=== PATIENT | female | born 1975 | race American Indian/Alaskan Native ===

== ENCOUNTER 2018-01-21 02:05 | Emergency (ER) | payer OTHER ==
[2018-01-21] MEDS ORDERED: Aspirin 325 mg EC Tablets PO STA (02:43)
[2018-01-21] MEDS ORDERED: Aspirin 325 mg EC Tablets PO ONE (02:50)
[2018-01-21 03:07] LABS: BASO # 0.1 K/uL (0.0-0.2); BASO % 0.9 % (0.0-2.0); EOS % 0.6 % (0.0-4.0); HEMOGLOBIN 11.6 g/dL (11.0-16.0); LYMPH # 1.8 K/uL (1.0-4.3); LYMPH % 26.3 % (20.0-40.0); MEAN CORPUSCULAR HEMOGLOBIN 30.9 pg (27.0-31.0); MEAN CORPUSCULAR HGB CONC 33.9 g/dL (33.0-37.0); MEAN PLATELET VOLUME 8.3 fL (7.2-11.7); MONO # 0.7 K/uL (0.0-0.8); MONO % 10.2 % (0.0-10.0); NEUT # 4.2 K/uL (1.8-7.0); RBC 3.76 Mil/uL (3.80-5.20); WHITE BLOOD COUNT 6.9 K/uL (4.8-10.8)
[2018-01-21] MEDS ORDERED: Albuterol 0.083% Inhal Sol (2.5 mg/3 mL) UD IH STA ×2 (03:08→03:31)
[2018-01-21] MEDS ORDERED: Naproxen 550 mg Tab PO STA (03:10)
[2018-01-21] MEDS ORDERED: Albuterol 0.083% Inhal Sol (2.5 mg/3 mL) UD ONE ×2 (03:19→03:45)
[2018-01-21] MEDS ORDERED: Naproxen 550 mg Tab PO ONE (03:19)
[2018-01-21 03:46] VITALS: O2SAT 95
[2018-01-21 03:46] LABS: ALB/GLOB RATIO 0.9 (1.0-2.1); ALBUMIN 3.3 g/dL (3.5-5.0); ALT/SGPT 26 U/L (9-52); AST/SGOT 17 U/L (14-36); BLOOD UREA NITROGEN 14 mg/dL (7-17); GFR AFRICAN-AMERICAN > 60; GFR NON-AFRICAN AMERICAN > 60
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
[2018-01-21 04:53] VITALS: BP 130/69; PULSE 73; RESP 16
[2018-01-21 04:57] VITALS: TEMP 98
--- NOTE | 2018-01-21 09:17 | RAD ---
Chest x-ray single frontal view History: Chest pain. Comparison: 01/21/2018 Findings: No focal infiltrate or effusion. Heart size within normal limits. Impression No focal infiltrate or effusion.
--- NOTE | 2018-01-24 17:25 | CARD ---
APPROVED REPORT EKG Measurement Heart [id number] <Conclusion> Normal sinus rhythm Possible Left atrial enlargement Borderline ECG
== END 2018-01-21 05:13 | disposition home or self-care (01) ==
LOC: C.ER 02:05
DX: F41.9 Anxiety disorder, unspecified (principal); R07.89 Other chest pain